=== PATIENT | male | born 1960 | race Caucasian/White ===

== ENCOUNTER 2018-01-23 16:09 | Inpatient (IN) | payer OTHER ==
[~2018-01-23] VITALS: Ht 177.8 cm; Wt 75.5 kg
--- NOTE | ~2018-01-23 | EKG ---
[address] [place] [address] ELECTROCARDIOGRAM REPORT Name: ROCIO VALENCIA Room #: 361-P [facility] IN M.R.#: [id number] Admission: 01/23/18 Attend Phys: Aldair Barth MD Discharge: 01/24/18 Date of : 56 Report #: [id number] THIS REPORT FOR: //name// [facility] Test Date: 2018-01-23 Test Time: 17:04:44 Pat Name: ROCIO VALENCIA Department: Room: Gender: M [employer]: Cecy KENYON : 1960 Requested By: Aldair Barth Order Number: [id number] MD: Paul Joy Measurements Intervals [place] Rate: 156 P: AR: QRS: 92 QRSD: 86 T: -52 QT: 268 QTc: 432 Interpretive Statements Atrial fibrillation with rapid V-rate Consider RVH w/ secondary repol abnormality ST depression, probably rate related No previous ECG available for comparison Electronically Signed On 01-25-2018 15:17:05 CDT by Paul Joy [email or web address] <ELECTRONICALLY SIGNED> By: Paul Joy MD, [facility] 01/25/18 1517 1704 1704 Paul Joy MD, [facility] /EPI
--- NOTE | ~2018-01-23 | H ---
[facility] [place] [address] [place] [address] HISTORY AND PHYSICAL Name: ROCIO VALENCIA Room #: 361-P ADM IN M.R.#: [id number] Admission: 01/23/18 Attend Phys: Aldair Barth MD Discharge: Date of : 56 Report #: [id number] THIS REPORT FOR: //name// CC: Aldair Barth [facility] unknown DATE OF SERVICE: 01/23/2018 ATTENDING PHYSICIAN: Dr. Barth. CHIEF COMPLAINT: Low hemoglobin. HISTORY OF PRESENT ILLNESS: The patient is a 57-year-old gentleman with known history of chronic respiratory failure, on the ventilator with quadriplegia and chronic wounds. The patient has been at [facility] for management of his chronic ventilator. He does have a history of chronic decubitus wounds, which have been treated in multiple ways, which are nonhealing. The patient is terminal, but was noted to have low hemoglobin and in view of the low hemoglobin, was transferred for blood transfusion. The patient is being on a ventilator, was admitted to the hospital, and the nursing staff has noted that the wounds are deep and having a drainage. He was also running a low-grade temperature. [facility]. He was also noted to have atrial fibrillation with a fast ventricular response, for which he was started on Cardizem, and he is tolerating it well. His heart rate still remains in the 120s-130s. He is on the ventilator. PAST MEDICAL HISTORY: Significant for history of quadriplegia, chronic atrial fibrillation, hypothyroidism, chronic ventilator due to respiratory failure and chronic wounds. ALLERGIES: HE IS KNOWN TO BE ALLERGIC TO AMOXICILLIN AND NITROFURANTOIN. MEDICATIONS: He was currently on Synthroid, Pepcid, iron, Levemir. FAMILY HISTORY: Noncontributory. SOCIAL HISTORY: He is disabled, does not smoke or drink alcohol. REVIEW OF SYSTEMS: Not possible. As noted, he was running a low grade temperature as per nursing and was noted to have a fast heart rate due to his AFib and chronic wounds with drainage. PHYSICAL EXAMINATION: GENERAL: Elderly gentleman who is quadriplegic, was in bed. Hooked up to the ventilator. VITAL SIGNS: Temperature of 38.4, pulse was 118 and irregular. Respiration [facility] [address] [place] [address] HISTORY AND PHYSICAL Name: ROCIO VALENCIA Room #: 361-P [facility] IN .R.#: [id number] Admission: 01/23/18 Attend Phys: Aldair Barth MD Discharge: Date of : 56 Report #: [id number] rate of 24, on the ventilator. Blood pressure was 107/57, oxygen saturation 97%. LUNGS: Coarse breath sounds bilaterally with excessive secretion. There was no localized dullness. HEART: First and second heart sound, which was irregular and rapid. ABDOMEN: Soft, nontender and the patient had quadriplegia with spasticity and was noted to have extensive wounds in the sacral and gluteal area, which was deep and with necrotic tissue. LABORATORY DATA: Hemoglobin on admission was 7.2, post-transfusion, it was 9.9. ASSESSMENT AND PLAN: 1. Severe anemia, most probably chronic. 2. Quadriplegia. 3. Chronic respiratory failure, on ventilator. 4. Atrial fibrillation with fast response. 5. Chronic decubitus wounds, which had been present for the last 2 years and has received multiple treatments. The patient is terminal and no further treatment is planned in the hospital. [facility] for management of his chronic ventilator. This was discussed with the nursing staff, and the patient will be transferred today. By: [id number] Yobani Young MD /nt
--- NOTE | ~2018-01-23 | H ---
[facility] [address] [place] [address] HISTORY AND PHYSICAL Name: ROCIO VALENCIA Room #: 361-P ADM IN M.R.#: [id number] Admission: 01/23/18 Attend Phys: Aldair Barth MD Discharge: Date of : 56 Report #: [id number] THIS REPORT FOR: //name// CC: Aldair CORREA unknown DATE OF SERVICE: 01/23/2018 ATTENDING PHYSICIAN: Dr. Barth. CHIEF COMPLAINT: Low hemoglobin. DICTATION ENDS HERE. By: [id number] Yobani Young MD /nt
[2018-01-23 17:11] VITALS: BP 75/40
[2018-01-23 17:46] LABS: HEMATOCRIT 23.6 % (42.0-52.0); HEMOGLOBIN 7.2 gm/dL (14.0-18.0)
[2018-01-23 19:32] VITALS: BP 101/58
[2018-01-23 20:20] VITALS: BP 118/69; BP 87/56
[2018-01-23 23:59] VITALS: BP 113/69
[2018-01-24 00:40] VITALS: BP 104/70; BP 93/59
[2018-01-24 03:45] VITALS: BP 104/70
[2018-01-24 06:58] LABS: HEMATOCRIT 30.2 % (42.0-52.0)
[2018-01-24 07:00] LABS: HEMOGLOBIN 9.9 gm/dL (14.0-18.0)
[2018-01-24 07:42] VITALS: BP 107/57
[2018-01-24] MEDS ORDERED: FERROUS SU220 MG/52 PER TUBE (09:08)
[2018-01-24] MEDS ORDERED: XARELTO20 MG PO (09:08)
[2018-01-24] MEDS ORDERED: BANOPHEN25 M1 PO (09:08)
[2018-01-24] MEDS ORDERED: ACETAMINOP160 MG/54 PER TUBE (09:09)
[2018-01-24] MEDS ORDERED: CARDIZEM60 MG PER TUBE (09:09)
[2018-01-24] MEDS ORDERED: NORCO 5-325 TA1 EACH PO (09:09)
[2018-01-24] MEDS ORDERED: GLUCOSE4 GM PO (09:10)
[2018-01-24] MEDS ORDERED: GLUTOSE GEL 1515 G1 PO (09:10)
[2018-01-24] MEDS ORDERED: LEVEMIR SUBQ (09:10)
[2018-01-24] MEDS ORDERED: PEPCID20 MG PER TUBE (09:10)
[2018-01-24] MEDS ORDERED: MIRALAX17 GM PER TUBE (09:10)
[2018-01-24] MEDS ORDERED: DEXTROSE 500.5 GM/M1 IV PUSH (09:10)
[2018-01-24] MEDS ORDERED: KLOR-CON20 ME1 PER TUBE (09:10)
[2018-01-24] MEDS ORDERED: NOVOLOG100 UNIT/1 SUBQ (09:11)
[2018-01-24] MEDS ORDERED: SYNTHROID100 MC1 PER TUBE (09:11)
[2018-01-24] MEDS ORDERED: ZINC OXIDE56.7 GM TOP (09:11)
[2018-01-24] MEDS ORDERED: SSD CREAM 1% 5050 GM TOP (09:11)
[2018-01-24] MEDS ORDERED: GLUCAGON HCL1 MG IM (09:11)
== END 2018-01-24 15:42 | DRG 811 ==
LOC: 3W 16:09
PROVIDERS: Internal Medicine; Internal Medicine Geriatric Medicine
PROC: 30233N1 Transfusion of Nonautologous Red Blood Cells into Peripheral Vein, Percutaneous Approach (ICD-10-PCS; principal; 2018-01-23)
DX: D64.9 Anemia, unspecified (principal); G82.50 Quadriplegia, unspecified; J96.10 Chronic respiratory failure, unspecified whether with hypoxia or hypercapnia; Z99.11 Dependence on respirator [ventilator] status; E03.9 Hypothyroidism, unspecified; E11.9 Type 2 diabetes mellitus without complications; I48.2 Chronic atrial fibrillation; Z79.01 Long term (current) use of anticoagulants; Z88.1 Allergy status to other antibiotic agents; Z88.8 Allergy status to other drugs, medicaments and biological substances
CPT/HCPCS: 10779